=== PATIENT | female | born 1990 | race Caucasian/White ===

== ENCOUNTER 2020-04-01 07:13 | Inpatient (IN) ==
[2020-04-01] MEDS ORDERED: FAMOTIDINE 20 MG/2 ML VIAL IV ONE (07:53)
[2020-04-01] MEDS ORDERED: CITRIC ACID/SODIUM CITRATE 30 ML UDCUP PO ONE (07:53)
[2020-04-01] MEDS ORDERED: ceFAZolin 2,000 MG in PREMIX 1 EACH IV ONE (07:53)
[2020-04-01] MEDS ORDERED: OXYTOCIN/LR 30 UNIT/1,000 ML BAG IV ONE (07:54)
[2020-04-01] MEDS ORDERED: LACTATED RINGERS 1,000 ML IV ONE (07:54)
[2020-04-01] MEDS ORDERED: OXYTOCIN 10 UNIT/ML VIAL IM ONE (07:54)
[2020-04-01] MEDS ORDERED: LACTATED RINGERS 1,000 ML IV SCH (08:00)
[2020-04-01] MEDS ORDERED: ROPIVACAINE 0.5% 30 ML VIAL ONE (08:06)
[2020-04-01] MEDS ORDERED: DEXAMETHASONE 4 MG/1 ML VIAL ONE (08:06)
[2020-04-01 08:15] LABS: Basophils % 0.3 % (0.0-0.8); Eosinophils # 0.1 10*3/uL (0.0-0.87); Eosinophils % 0.5 % (0.00-10.9); Hematocrit 32.6 VOL% (35.7-47.0); Hemoglobin 10.3 GM/DL (12.0-16.0); Immature Granulocytes % 0.8 %; Immature Granulocytes Absolute 0.08 #; Lymphocytes # 2.4 10*3/uL (1.4-4.0); Lymphocytes % 24.3 % (21.3-54.2); Mean Corpuscular HGB Conc 31.6 GM/DL (32-36); Mean Corpuscular Volume 84.9 FL (87-102); Mean Platelet Volume 11.4 FL (9.6-12.0); Monocytes % 7.4 % (1.7-12.7); Neutrophils % 66.7 % (38.7-73.9); Platelet Count 160 T/CUMM (130-400); Red Blood Count 3.84 MC/CUMM (3.8-5.5); Red Cell Distribution Width 15.3 % (9.3-17.3); White Blood Count 10.1 T/CUMM (4-12)
[2020-04-01 08:42] LABS: Alanine Aminotransferase 11 U/L (13-56); Albumin 2.7 G/DL (3.4-5.0); Alkaline Phosphatase 142 U/L (45-117); Aspartate Amino Transferase 12 U/L (0-37); Bilirubin,Total < 0.39 MG/DL (0.2-1.0); Blood Urea Nitrogen 9 MG/DL (7-18); Calcium 8.2 MG/DL (8.5-10.1); Estimated Glom Filtration Rate 134 ML/MIN; Glucose 74 MG/DL (74-106); Osmolality,Calculated 270.8 MOS/KG (273-304); Total Protein 6.7 G/DL (6.4-8.3)
[2020-04-01 10:45] LABS: Cord Arterial Blood HCO3 22.5 MMOL/L
[2020-04-01] MEDS ORDERED: PHENYLEPHRINE 1 MG/10 ML SYRINGE IV ONE (10:45)
[2020-04-01 10:46] LABS: Cord Venous Blood HCO3 23.1 MMOL/L; Cord Venous Blood PCO2 35.4 MMHG
[2020-04-01] MEDS ORDERED: MORPHINE 10 MG/10 ML VIAL ONE (10:46)
[2020-04-01] MEDS ORDERED: fentaNYL 100 MCG/2 ML VIAL ONE (10:46)
[2020-04-01] MEDS ORDERED: BUPIVACAINE SPINAL 0.75% 2 ML AMP SPINAL ONE (10:47)
[2020-04-01] MEDS ORDERED: ONDANSETRON 4 MG/2 ML VIAL ONE (10:47)
[2020-04-01 10:52] LABS: Apearance,Urine CLEAR (Clear); Bacteria,Urine Occasional /HPF (Few); Bilirubin,Urine Negative (Negative); Blood, Urine Small mg/dL (Negative); Glucose,Urine (UA) Negative (Negative); Ketones,Urine 5 mg/dL (Negative); Nitrite,Urine Negative (Negative); Protein,Urine Negative; RBC,Urine 4 /HPF (0-4); Squamous Epithelial Cell,Urine Occasional /HPF (0-10); Urine Color Straw (Yellow); Urine Specific Gravity 1.008 (1.001-1.035); Urine Urobilinogen < 2.0 EU/DL (0.2-1.0); WBC,Urine <1 /HPF (0-6)
[2020-04-01] MEDS ORDERED: OXYTOCIN/LR 20 UNIT/1,000 ML BAG IV ONE (11:20)
[2020-04-01] MEDS ORDERED: SIMETHICONE CHEW 80 MG TABLET PO PRN (11:20)
[2020-04-01] MEDS ORDERED: ACETAMINOPHEN 325 MG TABLET PO PRN (11:20)
[2020-04-01] MEDS ORDERED: ONDANSETRON 4 MG/2 ML VIAL IV PRN (11:20)
[2020-04-01] MEDS ORDERED: RHO(D) IMMUNE GLOBULIN 300 MCG SYRINGE IM ONE (11:20)
[2020-04-01] MEDS ORDERED: MAGNESIUM HYDROXIDE SUSP 30 ML UDCUP PO PRN (11:20)
[2020-04-01] MEDS: KETOROLAC 30 MG/1 ML VIAL IV PRN ×2 (13:31→20:41)
[2020-04-01] MEDS ORDERED: ceFAZolin 1,000 MG in SYRINGE 1 EACH IV SCH (15:30)
[2020-04-01] MEDS ORDERED: METHYLERGONOVINE 0.2 MG/1 ML AMP IM ONE (15:50)
[2020-04-01] MEDS ORDERED: METHYLERGONOVINE 0.2 MG/1 ML AMP ONE (15:53)
[2020-04-01] MEDS ORDERED: SODIUM CHLORIDE 0.9% 50 ML IV ONE (17:39)
[2020-04-01] MEDS: ceFAZolin 1,000 MG in SYRINGE 1 EACH IV SCH (17:45)
[2020-04-01 18:18] LABS: Basophils % 0.2 % (0.0-0.8); Hematocrit 31.1 VOL% (35.7-47.0); Hemoglobin 9.7 GM/DL (12.0-16.0); Immature Granulocytes % 0.8 %; Immature Granulocytes Absolute 0.13 #; Lymphocytes # 1.1 10*3/uL (1.4-4.0); Lymphocytes % 7.1 % (21.3-54.2); Mean Corpuscular HGB Conc 31.2 GM/DL (32-36); Mean Corpuscular Volume 86.9 FL (87-102); Mean Platelet Volume 11.8 FL (9.6-12.0); Monocytes % 3.6 % (1.7-12.7); Neutrophils % 88.3 % (38.7-73.9); Platelet Count 161 T/CUMM (130-400); Red Blood Count 3.58 MC/CUMM (3.8-5.5); Red Cell Distribution Width 14.7 % (9.3-17.3); White Blood Count 15.6 T/CUMM (4-12)
[2020-04-01] MEDS: LACTATED RINGERS 1,000 ML IV SCH ×2 (20:41→20:47)
[2020-04-01] MEDS: DOCUSATE SODIUM 100 MG CAPSULE PO SCH (22:00)
[2020-04-02] MEDS ORDERED: SODIUM CHLORIDE 0.9% 100 ML IV ONE (02:01)
[2020-04-02] MEDS: ceFAZolin 1,000 MG in SYRINGE 1 EACH IV SCH (02:10)
[2020-04-02 03:18] LABS: Basophils % 0.2 % (0.0-0.8); Eosinophils % 0.3 % (0.00-10.9); Hematocrit 29.7 VOL% (35.7-47.0); Hemoglobin 9.4 GM/DL (12.0-16.0); Immature Granulocytes % 0.8 %; Immature Granulocytes Absolute 0.12 #; Lymphocytes # 2.1 10*3/uL (1.4-4.0); Lymphocytes % 13.9 % (21.3-54.2); Mean Corpuscular HGB Conc 31.6 GM/DL (32-36); Mean Corpuscular Volume 87.1 FL (87-102); Mean Platelet Volume 11.6 FL (9.6-12.0); Monocytes % 4.7 % (1.7-12.7); Neutrophils % 80.1 % (38.7-73.9); Platelet Count 161 T/CUMM (130-400); Red Blood Count 3.41 MC/CUMM (3.8-5.5); Red Cell Distribution Width 14.9 % (9.3-17.3); White Blood Count 14.8 T/CUMM (4-12)
[2020-04-02] MEDS: IBUPROFEN 800 MG TABLET PO PRN ×3 (05:42→19:37)
[2020-04-02] MEDS: DOCUSATE SODIUM 100 MG CAPSULE PO SCH ×2 (08:30→21:12)
[2020-04-02] MEDS: FERROUS SULFATE 325 MG TABLET PO SCH ×2 (08:30→21:12)
[2020-04-02] MEDS: MULTIVITAMIN (PRENATAL) TABLET PO SCH (08:30)
[2020-04-02] MEDS: METOCLOPRAMIDE 10 MG TABLET PO SCH ×2 (08:30→16:31)
[2020-04-03] MEDS: METOCLOPRAMIDE 10 MG TABLET PO SCH ×2 (02:02→10:20)
[2020-04-03] MEDS ORDERED: oxyCODONE/ACETAMINOPHEN 5-325 MG TABLET PO PRN ×2 (03:13→04:26)
[2020-04-03] MEDS ORDERED: oxyCODONE/ACETAMINOPHEN 5-325 MG TABLET ONE (03:16)
[2020-04-03] MEDS: IBUPROFEN 800 MG TABLET PO PRN (03:21)
[2020-04-03 07:44] VITALS: BP 114/73
[2020-04-03] MEDS: MULTIVITAMIN (PRENATAL) TABLET PO SCH (10:20)
[2020-04-03] MEDS: DOCUSATE SODIUM 100 MG CAPSULE PO SCH (10:20)
[2020-04-03] MEDS: FERROUS SULFATE 325 MG TABLET PO SCH (10:20)
== END 2020-04-03 12:20 | disposition home or self-care (01) | DRG 788 ==
LOC: N.LDOUT 07:13 → N.LD 07:16 → N.OB 12:59
PROVIDERS: ADMIT Obstetrics & Gynecology; ATTEND Obstetrics & Gynecology
PROC: LDCSECT (ICD-10-PCS; 2020-04-01 09:30)